=== PATIENT | female | born 1985 | race Caucasian/White ===

== ENCOUNTER 2022-03-13 16:06 | Emergency (ER) | payer OTHER, MEDICAID, SELFPAY ==
[2022-03-13 16:08] VITALS: BP 126/79; PULSE 84; RESP 16; TEMP 37.2; O2SAT 93; BMI 23.8
--- NOTE | 2022-03-13 16:25 | EKG12_ITS ---
Test Reason : PALPITATIONS Blood Pressure : / mmHG Vent. Rate : 076 BPM Atrial Rate : 076 BPM P-R Int : 118 ms QRS Dur : 084 ms QT Int : 376 ms P-R-T Axes : 040 045 050 degrees QTc Int : 423 ms Normal sinus rhythm with sinus arrhythmia Normal ECG Confirmed by RAMSEY RODRIGUEZ, KAVON ([id number]), production editor DEMETRIUS KELLER ([id number]) on 03/16/2022 12:37:29 PM Referred By: CHIKIS Confirmed By:KAVON MUSTAFA MD
--- NOTE | 2022-03-13 16:27 | ED.VIS.DYS ---
HPI History of Present Illness Chief Complaint: Shortness of Breath Narrative Narrative: 37-year-old female presenting with multiple complaints. Her initial complaint is that she feels short of breath and she thinks she has pneumonia. She states she has had the symptoms for months. She does not know if she has a fever because she does not have a thermometer and she has peripheral neuropathy so it makes it hard for her to tell if she has a fever. She states she does cough. There is no sputum production. Patient does report that she is has palpitations. She has been having these for weeks. She does not feel lightheaded. Patient also states she might possibly have a urinary tract infection. She states that she has urinary frequency but not dysuria or hematuria. She denies any flank pain. She denies abdominal pain. She denies nausea or vomiting. Patient also states that she has some sores on her feet which she states she sustained by wearing the improper footwear and she has been dealing with these by cleaning them with soap and water, hydrogen peroxide and self debriding them at home. [facility] Medical History (Updated 03/13/22 @ 16:48 by Supriya Mustafa) Autism PTSD (post-traumatic stress disorder) Home Medications bacitracin 500 unit/gram topical ointment 1 applic topical TID #14 grams 03/13/22 [Rx Last Taken Unknown] Allergy/AdvReac Type Severity Reaction Status Date / Time adhesive tape [tape] Allergy Hives Verified 03/13/22 16:07 meperidine [From Demerol] Allergy Hives Verified 03/13/22 16:07 Social History Smoking Status: Former smoker ROS ROS ED Constitutional Constitutional ED: Denies chills or fever(s) Eyes Eyes: Denies change in vision or diplopia ENT ENT ED: Denies rhinorrhea or sore throat Cardiovascular Cardiovascular: Reports palpitations; Denies chest pain Respiratory/Chest Respiratory/Chest: Reports cough and dyspnea Gastrointestinal Gastrointestinal: Denies abdominal pain, constipation, diarrhea, nausea or vomiting Genitourinary Genitourinary ED: Reports urinary frequency; Denies dysuria or hematuria Musculoskeletal Musculoskeletal: Denies arthralgias, back pain, myalgias or neck pain Integumentary Reports Abrasions Neurologic Neurologic: Denies headache(s) Psychiatric Psychiatric: Denies anxiety or depression EXAM Physical Exam Const Vital Signs: 03/13/22 16:08 03/13/22 16:47 03/13/22 17:05 Temperature 98.9 F Temperature Source Temporal Pulse Rate 84 Pulse Rate [Lying] 73 Pulse Rate [Sitting (for 1 minute prior to obtaining)] 67 Pulse Rate [Standing (for 1 minute prior to obtaining)] 78 Respiratory Rate 16 Respiratory Effort Normal Non-Labored Blood Pressure 126/79 H Blood Pressure [Lying] 110/75 Blood Pressure [Sitting (for 1 minute prior to obtaining)] 110/70 Blood Pressure [Standing (for 1 minute prior to obtaining)] 109/73 Blood Pressure Mean 94 Blood Pressure Mean [Lying] 86 Blood Pressure Mean [Sitting (for 1 minute prior to obtaining)] 83 Blood Pressure Mean [Standing (for 1 minute prior to obtaining)] 85 Pulse Ox 93 Oxygen Delivery Method Room Air Positive well nourished General Appearance ED: NAD; Negative for pallor HEENT Reports moist mucous membranes atraumatic Eyes PERRL and EOMs intact bilaterally General Eye ED: Negative for pale conjunctiva or scleral icterus Neck No no lymphadenopathy and No supple Resp normal respiratory effort and clear to auscultation bilaterally Auscultation: Negative for rales, rhonchi or wheezes Cardio regular rate and regular rhythm GI non-tender and non-distended Back/Spine no CVA tenderness Neuro oriented x3 and CN's II-XII intact bilaterally Sensorium / Orientation: alert Motor Exam: strength 5/5 throughout Psych mental status grossly normal Skin Skin Narrative: Left foot has 2 small 3 mm punctate wounds consistent with abrasions on the dorsum of the foot proximally. There is no surrounding induration or warmth. No lymphangitic streaking. No abscess. Minimally tender to palpation. Right foot has similar appearing wounds on the heel/posterior part of the foot. There is no surrounding induration or warmth. No lymphangitic streaking. No abscess. Minimally tender to palpation. General Skin Exam: Negative for jaundice or pallor MDM MDM MDM Narrative Medical decision making narrative: Patient presenting with multiple complaints. She was concerned she had pneumonia and had been going on for weeks. Her vital signs are normal. She is not hypoxic, tachycardia, tachypneic. Her lungs are clear to auscultation. CBC shows no leukocytosis or left shift. BMP shows slight hypokalemia with potassium 3.3. Status of chronic issue. High-sensitivity troponin is 4. I did obtain orthostatic vitals and these are normal. hCG negative. Urinalysis is also normal without evidence of infection. Chest x-ray my interpretation shows no acute cardiopulmonary process. The radiologist interprets as questionable inflammatory change in the right lower lobe. I do believe this is believe is infectious in nature especially given patient's normal vital signs and lab work. Patient's initial pulse ox was 93% on room air however with ambulation she is walking at 95 to 98%. I do not believe the patient's wounds on her feet require oral antibiotics. I will discharge her home with bacitracin. Impression: 1. Palpitations 2. Cough 3. Bilateral feet abrasions Lab Data Attestation: I reviewed the patient's lab results. Labs: Laboratory Results - last 24 hr 03/13/22 03/13/22 03/13/22 16:40 16:40 16:40 WBC 5.3 RBC 4.22 Hgb 11.3 L Hct 35.6 L MCV 84.4 MCH 26.8 L MCHC 31.7 L RDW Std Deviation 45.1 H RDW Coeff of Michelle 14.7 H Plt Count 267 MPV 11.0 Immature Gran % (Auto) 0.000 Neut % (Auto) 51.5 Lymph % (Auto) 40.6 Claiborne % (Auto) 6.0 Eos % (Auto) 0.6 Baso % (Auto) 1.3 H Absolute Neuts (auto) 2.7 Absolute Lymphs (auto) 2.15 Nucleated RBC % 0 Sodium 138 Potassium 3.3 L Chloride 107 Carbon Dioxide 25.0 Anion Gap 6 BUN 9 Creatinine 0.71 Estim Creat Clear Calc 93.56 Est GFR (MDRD) Af Amer 120 Est GFR (MDRD) Non-Af 99 BUN/Creatinine Ratio 12.6 Glucose 86 Calcium 8.9 Troponin I High Sens 4 Serum , Qual NEGATIVE Urine Color Urine Clarity Urine pH Ur Specific [place] Urine Protein Urine Glucose (UA) Urine Ketones Urine Occult Blood Urine Nitrite Urine Bilirubin Urine Urobilinogen Ur Leukocyte Esterase Urine RBC Urine WBC Ur Squamous Epith Cells Urine Bacteria Urine Mucus Urine Opiates Screen Urine Methadone Screen Ur Barbiturates Screen Ur Phencyclidine Scrn Ur Amphetamines Screen MDMA (Ecstasy) Screen U Benzodiazepines Scrn Urine Cocaine Screen U Cannabinoids Screen Ur Drug Screen Comment 03/13/22 03/13/22 16:46 16:46 WBC RBC Hgb Hct MCV MCH MCHC RDW Std Deviation RDW Coeff of Michelle Plt Count MPV Immature Gran % (Auto) Neut % (Auto) Lymph % (Auto) Cla[place]orne % (Auto) Eos % (Auto) Baso % (Auto) Absolute Neuts (auto) Absolute Lymphs (auto) Nucleated RBC % Sodium Potassium Chloride Carbon Dioxide Anion Gap BUN Creatinine Estim Creat Clear Calc Est GFR (MDRD) Af Amer Est GFR (MDRD) Non-Af BUN/Creatinine Ratio Glucose Calcium Troponin I High Sens Serum , Qual Urine Color Straw Urine Clarity Clear Urine pH 7.0 Ur Specific [place] 1.005 Urine Protein Negative Urine Glucose (UA) Normal Urine Ketones Negative Urine Occult Blood Negative Urine Nitrite Negative Urine Bilirubin Negative Urine Urobilinogen Normal Ur Leukocyte Esterase Negative Urine RBC 0 SEEN Urine WBC 0 SEEN Ur Squamous Epith Cells 0 SEEN Urine Bacteria 0 SEEN Urine Mucus 0 SEEN Urine Opiates Screen NEGATIVE Urine Methadone Screen NEGATIVE Ur Barbiturates Screen NEGATIVE Ur Phencyclidine Scrn NEGATIVE Ur Amphetamines Screen NEGATIVE MDMA (Ecstasy) Screen NEGATIVE U Benzodiazepines Scrn NEGATIVE Urine Cocaine Screen NEGATIVE U Cannabinoids Screen NEGATIVE Ur Drug Screen Comment Radiography Diagnostic Testing: Clinical Impression(s) from Imaging Studies Chest X-Ray 03/13/22 16:42 IMPRESSION: Question mild focal inflammatory changes in the right lower lobe Electronically Signed: Saji Winter MD at 17:09 EST Reading Location ID and State: [address] [place] [address] , Service support , Discharge Plan Triage Chief Complaint: Shortness of Breath ED Provider: Kenneth Krueger Dx/Rx/DC Orders Instructions: ED Abrasion, ED Cough Chronic Uncertain Cause Adult, ED Dysuria, Uncertain Cause (Adult), ED Palpitations Prescriptions: New bacitracin 500 unit/gram ointment 1 applic topical TID Qty: 14 0RF Primary Care Provider: Care Physician,No Primary Referrals: Lalit Jesus MD [Med Staff - [employer]] - 3-5 Days NOT,DEFINED [Non-Staff] - Disposition Disposition: Home, Self Care Discharge Date/Time: 03/13/22 19:21
--- NOTE | 2022-03-13 16:31 | NURSING ---
NO OLD EKGS
--- NOTE | 2022-03-13 16:42 | RAD_ITS ---
STUDY: X-RAY CHEST REASON FOR EXAM: Female, 37 years old. cough TECHNIQUE: AP portable COMPARISON: None. FINDINGS: Minor asymmetric interstitial thickening in the right lower lobe possibly representing focal inflammatory changes.. There is no demonstrated pleural abnormality. Normal size heart. Normal mediastinum and sadia. Normal visualized pulmonary arteries. Normal visualized aortic arch and descending thoracic aorta. Normal visualized thoracic spine. Normal visualized ribs, clavicles, and shoulders. There is no demonstrated abnormality of the visualized soft tissue structures of the upper abdomen. RAD/Chest 1 View (Portable) IMPRESSION: Question mild focal inflammatory changes in the right lower lobe Electronically Signed: Saji Winter MD at 17:09 EST ,
[2022-03-13 16:53] LABS: Bacteria 0 SEEN /hpf (None Seen); Mucous, Urine 0 SEEN /hpf (<or=2+); Red Blood Cells-Urine 0 SEEN /hpf (0-5); Squamous Epithelial Cells - UA 0 SEEN /hpf (5-10); White Blood Cells 0 SEEN /hpf (0-5)
[2022-03-13 17:00] LABS: Color, Urine Straw (Yellow); Glucose, Dipstick Normal (Normal); Ketone-Dipstick Negative (Negative); Leukocyte Esterase-Dipstick Negative /ul (Negative); Nitrite-Dipstick Negative (Negative); Occult Blood-Urine Negative /ul (Negative); Protein-Dipstick Negative (Negative); Specific Gravity, Urine 1.005 (1.002-1.030); Urine Bilirubin Dipstick Negative (Negative); Urine Clarity Clear (Clear); Urine Urobilinogen Normal (Normal)
[2022-03-13 17:05] VITALS: BP 109/73; BP 110/70; BP 110/75; PULSE 67; PULSE 73; PULSE 78
[2022-03-13 17:07] LABS: Internal QC Validated? YES +Cl - CLEAR BKGD; Pregnancy, Serum, hCG Quali. NEGATIVE Negative
[2022-03-13 17:14] LABS: Anion Gap 6 (5-15); BUN 9 mg/dL (7-18); BUN/Creat Ratio 12.6 RATIO (10-20); Calcium,Total 8.9 mg/dL (8.5-10.1); Chloride 107 mmol/L (98-107); Creatinine, Serum 0.71 mg/dL (0.55-1.02); EST Glomerular Filtration Rate 99 mL/min (>60); Est Glom Filt Rate - Afr Amer 120 mL/min (>60); Estimated Creatinine Clearance 93.56 ml/min; Glucose 86 mg/dL (74-106); Potassium 3.3 mmol/L (3.5-5.1); Sodium Level 138 mmol/L (136-145); Troponin-I HS 4 pg/mL (3.0-54.0)
[2022-03-13 17:19] LABS: Absolute Lymphocyte Count 2.15 X10^3/uL (0.83-4.51); Absolute Neutrophil Count 2.7 X10^3/uL (2.0-7.7); Basophil# 0.07 X10^3/uL; Basophil% 1.3 % (0-1); Eosinophil# 0.03 X10^3/uL; Eosinophils% 0.6 % (0-5); Hematocrit 35.6 % (37-47); Hemoglobin 11.3 g/dL (12.0-15.0); Lymphocyte # 2.15 X10^3/ul (0.83-4.51); Lymphocyte % 40.6 % (19-41); Mean Corp Hgb Conc 31.7 g/dL (32-36); Mean Corpuscular Hgb 26.8 pg (27.0-32.0); Mean Corpuscular Volume 84.4 fL (81-99); Monocyte# 0.32 X10^3/uL; NRBC Flagged by Analyzer 0 % (0-5); Neutrophil # 2.73 X10^3/uL (2.7-7.7); Neutrophil % 51.5 % (47-70); Platelet Count 267 K/mm3 (150-450); RBC Distribution Width CV 14.7 % (11.6-14.6); RBC Distribution Width SD 45.1 fl (35.1-43.9); Red Blood Count 4.22 M/mm3 (4.2-5.4); White Blood Count 5.3 K/mm3 (4.4-11.0)
[2022-03-13 17:20] LABS: Amphetamine Urine VISTA NEGATIVE (<1000 ng/mL); Barbiturate Urine VISTA NEGATIVE (< 200 ng/mL); Benzodiazepine Urine VISTA NEGATIVE (< 200 ng/mL); Cocaine Urine VISTA NEGATIVE (< 300 ng/mL); Ecstacy Urine VISTA NEGATIVE (< 500 ng/mL); Methadone Urine VISTA NEGATIVE (< 300 ng/mL); PCP Urine VISTA NEGATIVE (< 25 ng/mL); THC Urine VISTA NEGATIVE (< 50 ng/mL); Vista UDS pH Range 7
[2022-03-13 18:36] VITALS: O2SAT 95
[2022-03-13] MEDS: Potassium Chloride Oral Tablet 20 MEQ PO (19:15)
--- NOTE | 2022-03-15 11:13 | CM.ED ---
LOLA noted a order placed by KRIS Monet that patient is not taking medications. LOLA called listed face sheet number at 11:10am and left voice mail to call this rfp writer. [place] KAUR
--- NOTE | 2022-03-16 11:36 | CM.ED ---
LOLA Note LOLA called patient at 11:30am and SW introduced self and role. SW was following up with patient regarding her mental health medications and difficulty in obtaining them. Patient said I don't have any mental health medications that I know of. Patient then voiced she has a personal psychiatrist. SW asked who patient's psychiatrist is, as to see if this leader writer could assist with medication assistance, and patient said you will have to talk to my POA.. I know nothing about my medical issues. Patient then said I have been super hacked... do you know who my POA is?. SW advised that this leader writer did not know who the POA is and patient said are you sure? and SW advised that this leader writer did not know who her POA is. Patient then said well thank you and have a good day and hung up. LOLA updated RN who placed the order, Dominga KAUR
== END 2022-03-13 19:21 | disposition home or self-care (01) ==
PROVIDERS: Emergency Provider Student in an Organized Health Care Education/Training Program; Visit Provider Student in an Organized Health Care Education/Training Program
DX: R06.02 Shortness of breath (principal); R00.2 Palpitations; R35.0 Frequency of micturition; Z87.891 Personal history of nicotine dependence; R05.3 Chronic cough; R30.0 Dysuria; S90.811A Abrasion, right foot, initial encounter; S90.812A Abrasion, left foot, initial encounter; X58.XXXA Exposure to other specified factors, initial encounter
CPT/HCPCS: 71045; 80048; 80307; 81001; 84484; 84703; 85025; 93005; 99285; A4216

== ENCOUNTER 2022-08-20 07:05 | Emergency (ER) | payer MEDICAID, SELFPAY ==
[2022-08-20 07:06] VITALS: BP 121/81; PULSE 98; RESP 18; TEMP 36.6; O2SAT 99; BMI 24.2
--- NOTE | 2022-08-20 07:23 | ED.VIS.LOWEX ---
HPI History of Present Illness Chief Complaint: Lower Extremity Injury Informant: patient Narrative Narrative: Patient states for the last several days-1 week she has developed sores on the backs of her ankles and blisters on the bottoms of her feet due to getting new shoes and choosing poorly. She denies any systemic symptoms or discharge from these areas but is concerned they may be infected. She has tried no treatments or coverings to these areas. [facility] Medical History Autism PTSD (post-traumatic stress disorder) Home Medications bacitracin 500 unit/gram topical ointment 1 applic topical TID #14 grams 03/13/22 [Rx Last Taken Unknown] Allergy/AdvReac Type Severity Reaction Status Date / Time adhesive tape [tape] Allergy Hives Verified 08/20/22 07:24 meperidine [From Demerol] Allergy Hives Verified 08/20/22 07:24 Social History Smoking Status: Former smoker ROS ROS ED Constitutional Constitutional ED: Denies chills or fever(s) Musculoskeletal Musculoskeletal: Reports extremity pain; Denies neck pain Integumentary Reports wounds; Denies rash Neurologic Neurologic: Denies paresthesias or weakness EXAM Physical Exam Const Vital Signs: 08/20/22 07:06 Temperature 97.8 F Temperature Source Temporal Pulse Rate 98 Respiratory Rate 18 Blood Pressure 121/81 H Blood Pressure Mean 94 Pulse Ox 99 Oxygen Delivery Method Room Air Positive well nourished and well developed General Appearance ED: well developed and NAD Neck full ROM and supple Back/Spine normal ROM and normal to inspection Extremity Extremity Narrative: Full range of motion of all joints of both lower extremities. See skin exam. Neuro oriented x3, no focal motor deficits, no sensory deficits noted and gait normal Sensorium / Orientation: alert Psych mental status grossly normal and thought process normal Skin Skin Narrative: On the back of both Achilles, consistent with area where her shoes may rub, symmetrically bilaterally, there is a small scab with some mild surrounding erythema, nontender. No induration. No abscess. No lymphangitis. On the plantar aspect of both feet, just anterior to the arch are unbroken nontender friction blisters without signs of infection or abscess. Rashes: no rashes MDM MDM MDM Narrative Medical decision making narrative: I reassured her there is no indication for oral/systemic antibiotics here. She is asking for something topical which I think is fine, we gave her a couple packets of bacitracin, as well as a dressing to help relieve the pressure but in the end I advised different shoes. Discharge Plan Triage Chief Complaint: Lower Extremity Injury ED Provider: Flynn Barber Dx/Rx/DC Orders Clinical Impression: Blister of foot without infection, Friction blisters of sole of left foot, Friction blisters of sole of right foot Instructions: ED Blister (Adult) Prescriptions: No Action bacitracin 500 unit/gram ointment 1 applic topical TID Qty: 14 0RF Primary Care Provider: Care Physician,No Primary Referrals: Saji Leung DPM [Med Staff - Active Staff] - As Needed Care Physician,No Primary [Primary Care Provider] - Activity Restrictions/Additional Instructions: Only need to apply a very small amount of ointment to the open/scabbed areas along with a covering, consider getting some moleskin to help alleviate the pressure over affected areas. Disposition Disposition: Home, Self Care
== END 2022-08-20 07:37 | disposition home or self-care (01) ==
LOC: ED 07:35
PROVIDERS: Emergency Provider Emergency Medicine; Visit Provider Emergency Medicine
DX: S90.821A Blister (nonthermal), right foot, initial encounter (principal); S90.822A Blister (nonthermal), left foot, initial encounter; Z87.891 Personal history of nicotine dependence; X58.XXXA Exposure to other specified factors, initial encounter
CPT/HCPCS: 99282

== ENCOUNTER 2022-08-26 21:10 | Emergency (ER) | payer MEDICAID, SELFPAY ==
[2022-08-26 21:10] VITALS: BP 116/75; PULSE 77; RESP 16; TEMP 36.6; O2SAT 100; BMI 24.3
--- NOTE | 2022-08-26 22:27 | ED.VIS.LOWEX ---
HPI History of Present Illness HPI Narrative: Patient presents with redness and swelling around the posterior heels bilaterally. Patient states she has had ulcers over this area that are nonhealing with bacitracin ointment. Patient states she has been having some subjective fevers. Patient states the redness is getting worse. Patient denies any discharge or drainage. Patient states she has been unable to get any different shoes because she is homeless. Denies any trauma or injury. Patient describes her pain as dull. Patient states it is constant but waxing and waning. Chief Complaint: Wound Check Onset/Context/Timing Onset: Days (5-6) Context: Gradual Onset Timing: Continuous and Waxes and wanes Quality of Pain: Dull and Throbbing Location: Bilateral heels Worsened by: Ambulation Relieved by: Nothing Associated Symptoms Associated Symptoms: Positive for Parasthesia; Negative for Weakness or Loss of Funtion [facility] History (Updated 08/26/22 @ 22:[address] Girish Stoner DO) Autism PTSD (post-traumatic stress disorder) Home Medications bacitracin 500 unit/gram topical ointment 1 applic topical TID #14 grams 03/13/22 [Rx Last Taken Unknown] bacitracin 500 unit/gram topical ointment 1 applic topical TID #14 grams 08/20/22 [Rx Last Taken Unknown] Allergy/AdvReac Type Severity Reaction Status Date / Time adhesive tape [tape] Allergy Hives Verified 08/26/22 21:13 meperidine [From Demerol] Allergy Hives Verified 08/26/22 21:13 Surgical History (Updated 08/26/22 @ 22:[address] Girish Stoner DO) History of section Hx of dilation and curettage Social History Smoking Status: Former smoker ROS ROS ED Constitutional Constitutional ED: Reports fever(s) and subjective; Denies chills Eyes Eyes: Denies blurry vision or change in vision ENT ENT ED: Denies rhinorrhea or sore throat Cardiovascular Cardiovascular: Denies chest pain or palpitations Respiratory/Chest Respiratory/Chest: Denies cough or dyspnea Gastrointestinal Gastrointestinal: Denies nausea or vomiting Genitourinary Genitourinary ED: Denies dysuria or hematuria Musculoskeletal Musculoskeletal: Denies back pain or neck pain Integumentary Reports rash; Denies abscess Neurologic Neurologic: Denies headache(s) or weakness Allergic/Immunologic Allergic/Immunologic ED: Denies mouth swelling or urticaria EXAM Physical Exam Const Vital Signs: 08/26/22 21:10 Temperature 97.9 F Temperature Source Temporal Pulse Rate 77 Respiratory Rate 16 Blood Pressure 116/75 Blood Pressure Mean 88 Pulse Ox 100 Oxygen Delivery Method Room Air Positive well nourished and well developed General Appearance ED: well developed and NAD HEENT Reports moist mucous membranes Neck full ROM and supple Extremity full ROM Extremity Narrative: There is no calf tenderness noted. General Extremety ED: Negative for edema General Extremity: Negative for edema Neuro oriented x3, CN's II-XII intact bilaterally, moves all extremities and no sensory deficits noted Sensorium / Orientation: alert Motor Exam: strength 5/5 throughout Psych mental status grossly normal Skin Skin Narrative: There are superficial wound ulcerations over the posterior aspects of the heels bilaterally. There is some mild surrounding erythema. There is no discharge or drainage. There is no fluctuance. There is minimal warmth. There are no petechia noted. Pedal pulses are equal bilaterally. Sensation was intact to light touch in all digits. MDM MDM MDM Narrative Medical decision making narrative: Patient was advised that these are superficial ulcerations. There may be a secondary cellulitis developing locally. It does not appear to be systemic. We will cover the patient with Keflex. Patient requested a referral for the wound care center. Patient was given this. Patient was also given referral for primary care physician for follow-up care. Patient was instructed to continue using bacitracin to the area. Patient was instructed to return if worse in any way. Patient understood and was agreeable with the plan. All questions were answered. Discharge Plan Triage Chief Complaint: Wound Check ED Provider: Girish Stoner Dx/Rx/DC Orders Clinical Impression: Cellulitis of left heel, Cellulitis of right heel Instructions: ED Wound Check (Infection) Prescriptions: No Action bacitracin 500 unit/gram ointment 1 applic topical TID Qty: 14 0RF bacitracin 500 unit/gram ointment 1 applic topical TID Qty: 14 0RF Rx Instructions: whatever tube is in stock please Primary Care Provider: Care Physician,No Primary Referrals: Felicity Bell [Non-Staff] - 5-7 Days Care Physician,No Primary [Primary Care Provider] - Wound,Center [Non-Staff] - 5-7 Days Disposition Disposition: Home, Self Care
== END 2022-08-26 23:04 | disposition left against medical advice (07) ==
PROVIDERS: Emergency Provider Emergency Medicine; Visit Provider Emergency Medicine
DX: L03.116 Cellulitis of left lower limb (principal); L03.115 Cellulitis of right lower limb; Z87.891 Personal history of nicotine dependence; Z59.00 Homelessness unspecified
CPT/HCPCS: 99281 ×2; 99282